=== PATIENT | female | born 1970 | race Caucasian/White ===

== ENCOUNTER 2017-01-28 16:45 | Emergency (ER) | payer OTHER ==
--- NOTE | 2017-01-28 18:30 | XRAY Preliminary Report ---
Exam: XR Shoulder 3 View RT IMPRESSION: No evidence of fracture or dislocation. [facility] SITE ID: [id number]
--- NOTE | 2017-01-28 18:32 | XRAY Report ---
EXAM: RIGHT SHOULDER RADIOGRAPHY EXAM DATE: 01/28/2017 06:09 PM. CLINICAL HISTORY: Trauma, pain. COMPARISON: None. TECHNIQUE: 3 views. FINDINGS: Bones: No fracture or focal bony lesion. Joints: No evidence of dislocation. Soft Tissues: No unexpected soft tissue findings. IMPRESSION: No evidence of fracture or dislocation. [facility] Referring Provider Line: [phone] SITE ID: [id number]
--- NOTE | 2017-01-28 19:10 | ED Physician Documentation ---
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 Pain right away, that has persisted.) Where injury occurred: Work Timing - onset: Today Timing - details: Abrupt onset, Still present Worsened by: Moving (abduction mostly but some with rotational movements.) Associated symptoms: No: Weakness, Numbness, Tingling, Swelling Similar symptoms before: Has not had sx before Recently seen: Not recently seen Review of Systems Constitutional: denies: Fever, Chills Skin: denies: Rash, Lesions Neurologic: denies: Focal weakness, Numbness PD PAST MEDICAL HISTORY - Past Medical History Past Medical History: Yes Cardiovascular: None Respiratory: None Neuro: None GI: GERD 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 : None HEENT: None Psych: Anxiety Musculoskeletal: None Derm: None - Past Surgical History Past Surgical History: Yes /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 - Present Medications Home Medications: Ambulatory Orders Medication Instructions Recorded Confirmed Omeprazole Magnesium [Prilosec Otc] 15 mg PO DAILY 01/13/15 01/28/17 Sertraline [Zoloft] 50 mg PO DAILY 02/15/15 01/28/17 HYDROcod/ACETAM 5/325 [[place] 5/325] 1 tab PO Q6H PRN #15 tablet 01/28/17 Naproxen 375 mg PO BID #20 tablet 01/28/17 - Allergies Allergies/Adverse Reactions: Allergies Allergy/AdvReac Type Severity Reaction Status Date / Time No Known Drug Allergies Allergy Verified 01/28/17 16:58 - Social History Does the pt smoke?: No Smoking Status: Never smoker Does the pt drink ETOH?: Yes Does the pt have substance abuse?: No - Immunizations Immunizations are current?: Yes - POLST Patient has POLST: No PD ED PE NORMAL - Vitals Vital signs reviewed: Yes - General General: Alert and oriented X 3, Well developed/nourished - HEENT HEENT: Atraumatic - Neck Neck: Supple, no meningeal sign, No bony TTP, No adenopathy - Cardiac Cardiac: RRR, No murmur - Respiratory Respiratory: Clear bilaterally - Derm Derm: Normal color, Warm and dry - Extremities Extremities: Other (right shoulder tender lateral and anterior. ROM limited for pain, but mostly with abduction. Some pain with rotational movements. No noted laxity nor effusion. ) Results - Vitals Vitals: Oxygen O2 Source Room air - Rads (name of study) shoulder Radiology: Prelim report reviewed, EMP read contemporaneously (normal bony structures and alignment. ) Departure - Departure Disposition: 01 Home, Self Care Clinical Impression: Strain of right shoulder Qualifiers: Encounter type: initial encounter Qualified Code(s): S46.911A - Strain of unspecified muscle, fascia and tendon at shoulder and upper arm level, right arm , initial encounter Condition: Stable Record reviewed to determine appropriate education?: Yes Instructions: ED Sprain Shoulder Follow-Up: Mikayla Chapman MD [Primary Care Provider] - [facility] [Provider Group] Prescriptions: HYDROcod/ACETAM 5/325 [[place] 5/325] 1 tab PO Q6H PRN #15 tablet PRN Reason: Pain Naproxen 375 mg PO BID #20 tablet Comments: You can use a sling for the shoulder for comfort but be sure to have gentle range of motion of the shoulder several times a day so does not get stiff and. Use naproxen or ibuprofen twice daily for the next 7-10 days. Be sure to take it with food. Add Tylenol or hydrocodone if needed for pain. Follow-up with orthopedics on the as planned and potentially call them tomorrow to see if they have even a sooner appointment. Light use of the right shoulder for the next 7-10 days as needed. Seems likely to be a strain of the muscles, though he would consider some injury or even partial tear of the rotator cuff since it is hurting so much. Following up with orthopedics will be good. Forms: Activity restrictions Discharge Date/Time: 01/28/17 19:47
[2017-01-28 19:48] VITALS: BP 136/90
== END 2017-01-28 19:47 | disposition home or self-care (01) ==
LOC: ED 16:45
DX: S46.911A Strain of unspecified muscle, fascia and tendon at shoulder and upper arm level, right arm, initial encounter (principal); X50.9XXA Other and unspecified overexertion or strenuous movements or postures, initial encounter; Y93.89 Activity, other specified; Y92.219 Unspecified school as the place of occurrence of the external cause; Y99.0 Civilian activity done for income or pay
CPT/HCPCS: 1040M; 73030; 99283

== ENCOUNTER 2017-05-08 16:31 | Outpatient (CLI) | payer OTHER ==
--- NOTE | 2017-05-09 12:52 | MRI Report ---
MRI CERVICAL SPINE WITHOUT CONTRAST INDICATION: 47-year-old female with complaints of right shoulder pain and tingling in right arm. Conc rey for cervical radiculopathy. TECHNIQUE: 1. Sagittal STIR, T1 and T2. 2. Axial T1, T2 and T2*. COMPARISON: None FINDINGS: There is some straightening of the cervical alignment with very minimal lordosis. This may be positio nal. Also demonstrated is minimal retrolisthesis of C3 on C4 and C5 on C6. Alignment is otherwise unr emarkable. Degenerative changes are demonstrated in the disks at all levels. There is mild disk space narrowing at C4-C5 with mild to moderate narrowing at C5-C6. The disk space heights are otherwise preserved. The marrow signal intensity appears normal. Axial images: C2-C3: No disk herniation or spinal stenosis. The neural foramina appear widely patent. C3-C4: Tiny posterior central protrusion with minimal mass effect on the ventral aspect of the thecal sac. The CSF ventral to the cord is effaced. There is a small amount of CSF dorsal to the cord witho ut high-grade spinal stenosis. No flattening or deformity of the cord to suggest impingement. The oh ral foramina are widely patent. C4-C5: Tiny posterior central protrusion with mild mass effect on the ventral aspect of the thecal sa c. The CSF ventral to the cord is effaced. There is a small amount of CSF dorsal to the cord without high-grade spinal stenosis. No flattening or deformity of the cord to suggest impingement. The neural foramina appear widely patent. C5-C6: Posterior spondylotic bar, larger paracentrally to the left where it projects posteriorly into the spinal canal for up to about 4.4 mm. Associated mass effect on the ventral aspect of the thecal sac. Thickening of ligamenta flava causing mass effect on the dorsal aspect of the dural sac. There i s significant spinal stenosis at this level. The mid sagittal canal diameter is on the order of about 6.5 mm. There is more severe stenosis, paracentrally to the left. The CSF surrounding the cord is co mpletely effaced and there appears to be some deformity of the cord with slight flattening of the cynthia tral surface, most pronounced paracentrally to the left. The spinal cord has not been assessed to adv antage. There may be mild T2 hyperintensity in the cord at the C5-C6 disk level (see image 6 of manju s 301). This is not confirmed as a definite, real finding on the axial T2 or sagittal STIR sequences and this may represent artifact. Large left-sided uncovertebral osteophyte appears to be giving rise to moderate to severe left foraminal stenosis. Smaller right-sided uncovertebral osteophyte with mild right foraminal stenosis. C6-C7: No disk herniation or spinal stenosis. The neural foramina are widely patent. C7-T1: No disk herniation or spinal stenosis. The neural foramina appear widely dated. IMPRESSION: 1. Multilevel degenerative disk disease. Small disk herniations or spondylotic bars are seen at sever al levels as described. There is associated spinal canal narrowing, most prominent at C5-C6 on the le ft where there appears to be at least mild cord impingement. Equivocal finding suggesting there may b e a tiny focus of T2 hyperintensity in the cord at this level. If real, this could represent minor ed bryce or myelomalacia. This probably represents artifact. 2. There is a fairly large, left-sided uncovertebral osteophyte at C5-C6 giving rise to left C5-C6 fo raminal stenosis that is considered moderate to severe. There certainly could be compromise of exitin g left C6 nerve root. Recommend clinical correlation for possible left C6 radiculopathy. 3. No significant appearing right-sided foraminal stenosis is identified and there is no evidence of right-sided cervical nerve root impingement. Referring Provider Line: [phone] SITE ID: [id number]
== END 2017-05-08 16:32 | disposition home or self-care (01) ==
LOC: DI 16:31
PROVIDERS: ATTEND Orthopaedic Surgery
DX: M50.21 Other cervical disc displacement, high cervical region (principal); M50.31 Other cervical disc degeneration, high cervical region; M47.892 Other spondylosis, cervical region
CPT/HCPCS: 72141

== ENCOUNTER 2017-08-21 13:41 | Outpatient (CLI) | payer OTHER ==
[2017-08-21 14:06] LABS: BASOPHILS % (AUTO) 0.3 %; EOSINOPHILS # (AUTO) 0.1 10^3/uL (0.0-0.7); EOSINOPHILS % (AUTO) 1.4 %; LYMPHOCYTES % (AUTO) 23.9 %; MEAN CORPUSCULAR HEMOGLOBIN 28.9 pg (27.0-31.0); MEAN CORPUSCULAR HGB CONC 34.2 g/dL (32.0-36.0); MEAN CORPUSCULAR VOLUME 84.4 fL (81.0-99.0); MEAN PLATELET VOLUME 6.9 fL (7.9-10.8); MONOCYTES # (AUTO) 0.5 10^3/uL (0.0-1.0); MONOCYTES % (AUTO) 5.4 %; NEUTROPHILS # (AUTO) 5.8 10^3/uL (1.5-6.6); PLT - PLATELET COUNT 329 10^3/uL (130-450); RED BLOOD COUNT 4.85 10^6/uL (4.20-5.40); RED CELL DISTRIBUTION WIDTH 12.8 % (12.0-15.0); WHITE BLOOD COUNT 8.4 x10^3/uL (4.8-10.8)
== END 2017-08-21 13:42 | disposition home or self-care (01) ==
LOC: LAB 13:41
PROVIDERS: ATTEND Orthopaedic Surgery
DX: Z01.812 Encounter for preprocedural laboratory examination (principal)
CPT/HCPCS: 36415; 85025

== ENCOUNTER 2020-06-08 12:40 | Outpatient (CLI) | payer OTHER | END 2020-06-08 23:59 | disposition home or self-care (01) | LOC: COV 12:40 | PROVIDERS: ATTEND Family Medicine | DX: Z20.822 Contact with and (suspected) exposure to COVID-19 (principal) ==

== ENCOUNTER 2023-01-17 08:53 | Outpatient (CLI) | payer BC ==
[2023-01-17 09:10] LABS: BASOPHILS % (AUTO) 0.4 %; EOSINOPHILS # (AUTO) 0.1 10^3/uL (0.0-0.7); EOSINOPHILS % (AUTO) 0.7 %; HCT - HEMATOCRIT 23.6 % (37.0-47.0); LYMPHOCYTES # (AUTO) 1.3 10^3/uL (1.5-3.5); LYMPHOCYTES % (AUTO) 17.2 %; MEAN CORPUSCULAR HEMOGLOBIN 16.4 pg (27.0-31.0); MEAN CORPUSCULAR HGB CONC 24.6 g/dL (32.0-36.0); MEAN CORPUSCULAR VOLUME 66.9 fL (81.0-99.0); MEAN PLATELET VOLUME 9.2 fL (7.9-10.8); MONOCYTES # (AUTO) 0.3 10^3/uL (0.0-1.0); MONOCYTES % (AUTO) 3.8 %; NEUTROPHILS % (AUTO) 77.6 %; NRBC ABSOLUTE COUNT (AUTO) 0.02 x10^3/uL; NUCLEATED RED BLOOD CELLS AUTO 0.3 /100WBC; PLT - PLATELET COUNT 356 10^3/uL (130-450); RED BLOOD COUNT 3.53 10^6/uL (4.20-5.40); RED CELL DISTRIBUTION WIDTH 20.3 % (12.0-15.0); WHITE BLOOD COUNT 7.7 x10^3/uL (4.8-10.8)
[2023-01-17 09:32] LABS: HGB - HEMOGLOBIN 5.8 g/dL (12.0-16.0)
[2023-01-17 09:52] LABS: THYROID STIMULATING HORMONE 2.02 uIU/mL (0.34-5.60)
[2023-01-17 09:54] LABS: ALBUMIN 3.4 g/dL (3.2-5.5); ALBUMIN/GLOBULIN RATIO 1.3 (1.0-2.2); BILIRUBIN,TOTAL 0.7 mg/dL (0.2-1.0); CALCIUM 8.7 mg/dL (8.5-10.3); CREATININE 0.5 mg/dL (0.6-1.3); POTASSIUM 3.6 mmol/L (3.5-4.5); TOTAL PROTEIN 6.1 g/dL (6.4-8.9)
[2023-01-17 10:43] LABS: ABSOLUTE RETICS # AUTO 0.052 10^6/uL (0.020-0.110); RED BLOOD COUNT 3.53 10^6/uL (4.20-5.40); RETICULOCYTE COUNT % (AUTO) 1.47 % (0.5-2.3)
[2023-01-17 11:12] LABS: FERRITIN 1.3 ng/mL (11.0-306.8)
== END 2023-01-17 08:54 | disposition home or self-care (01) ==
LOC: LAB 08:53
PROVIDERS: ATTEND Internal Medicine
DX: R06.00 Dyspnea, unspecified (principal); R42 Dizziness and giddiness; R20.0 Anesthesia of skin; G25.81 Restless legs syndrome; R00.0 Tachycardia, unspecified; Z79.899 Other long term (current) drug therapy; I51.4 Myocarditis, unspecified; D64.9 Anemia, unspecified
CPT/HCPCS: 36415; 80053; 82607; 82728; 82746; 83540; 83880; 84443; 84466; 85025; 85045; 85379

== ENCOUNTER 2023-02-20 07:22 | Day surgery (SDC) | payer BC ==
[2023-02-20] MEDS ORDERED: LACTATED RINGERS 1,000 ML IV ONE ×2 (07:30→09:37)
--- NOTE | 2023-02-20 08:21 | ANESTHESIA ---
Pre-Anesthesia VS, & Labs - Diagnosis anemia+ screening - Procedure EGD + colonoscopy Vital Signs: Temp Pulse Resp BP Pulse Ox O2 Flow Rate 36.4 C L 92 22 151/76 H 96 02/20/23 07:30 02/20/23 07:30 02/20/23 07:30 02/20/23 07:30 02/20/23 07:30 Height: 5 ft 5 in Weight (kg): 85.2 kg Body Mass Index: 31.2 BMI Classification: Obese - NPO >8 hours - Is Patient ?: No - Lab Results Lab results reviewed: Yes Home Medications and Allergies Home Medications: Ambulatory Orders Iron,Carbonyl/Ascorbic Acid [Fe C Tablet] 1 each PO DAILY 02/19/23 Omeprazole Magnesium [Prilosec Otc] 15 mg PO DAILY 01/13/15 Sertraline [Zoloft] 50 mg PO DAILY 02/15/15 Iron,Carbonyl/Ascorbic Acid [Fe C Tablet] 1 each PO DAILY 02/19/23 Allergies/Adverse Reactions: Allergies Allergy/AdvReac Type Severity Reaction Status Date / Time Sulfa (Sulfonamide Allergy Emesis Verified 02/20/23 07:49 Antibiotics) Anes History & Medical History - Anesthetic History Anesthesia Complications: reports: No previous complications Family history of Anesthesia Complications: Denies Family history of Malignant Hyperthermia: Denies - Medical History Cardiovascular: reports: None Pulmonary: reports: None Gastrointestinal: reports: GERD (w/c) Urinary: reports: None Neuro: reports: None Musculoskeletal: reports: None Endocrine/Autoimmune: reports: None Blood Disorders: reports: None Skin: reports: None Smoking Status: Never smoker Psychosocial: reports: No issues indicated - Surgical History Gynecologic: reports: section, Hysterectomy Exam General: Alert, Oriented x3, Cooperative Dental: WNL Mouth Openin Fingerbreadth Neck Mobility: Normal Mallampati classification: II Thyromental Distance: 4-6 cm Respiratory: Lungs clear Cardiovascular: Regular rate Plan Anesthesia Type: General, MAC Regional Block: Per Surgeon's request for Post Op pain control Consent for Procedure(s) Verified and Reviewed: Yes Code Status: Attempt Resuscitation ASA classification: 2-Mild systemic disease Is this case an emergency?: No
[2023-02-20] MEDS ORDERED: PROPOFOL 500 MG/50 ML 500 MG/50 ML VIAL ONE ×2 (08:32→09:06)
[2023-02-20] MEDS ORDERED: LIDOCAINE-PF 2% 10 ML AMP SUBQ ONE (08:32)
[2023-02-20] MEDS ORDERED: MIDAZOLAM 2 MG/2 ML VIAL ONE (08:40)
[2023-02-20 10:39] VITALS: O2SAT 94
--- NOTE | 2023-02-20 10:52 | XRAY Report ---
PROCEDURE: Chest 1 View X-Ray INDICATIONS: JOSE/LLL decreased breath sounds TECHNIQUE: One view of the chest was acquired. COMPARISON: None. FINDINGS: Surgical changes and devices: None. Lungs and pleura: No pleural effusions or pneumothorax. Ill-defined airspace opacities are seen in l eft infrahilar region and left lower lung field. Blunting of left costophrenic angle is also noted carter ggestive of trace left pleural effusion. Mediastinum: There is cardiomegaly, and suggestion of large hiatal hernia. Bones and chest wall: No suspicious bony lesions. Overlying soft tissues appear unremarkable. IMPRESSION: 1. Suggestion of moderate size left lower lobe infiltrate/atelectasis. Trace left pleural effusion is also likely present. No pneumothorax. 2. Cardiomegaly and suggestion of large hiatal hernia. Reviewed by: Maikel Marie MD on 02/20/2023 10:51 AM PDT Approved by: Maikel Marie MD on 02/20/2023 10:51 AM PDT Station ID: [id number]
[2023-02-20 10:59] VITALS: BP 104/55
--- NOTE | 2023-02-20 11:17 | CONSULTATION NOTE ---
Consultation Report: [id number] requested to see pt in post-op by RN due to pt feeling her breathing is "tight". Listened to BBS, R side CTA throughout, however decreased BS noted on L side LLL<JOSE. VSS, O2 sat 96% on RA. Port CXR ordered. 1052 CXR results noted and conveyed to pt and , see report. Will notify Dr Luna. 1104 Dr Luna recommends following up with PCP regarding CXR results and return to ED if symptoms worsen. Pt states understanding and reports she "feels fine". VSS. Pt not in any distress. Pt provided with IS and RN will go over teaching with patient prior to discharge.
--- NOTE | 2023-02-20 19:17 | ANESTHESIA POST OP EVALUATION ---
Anesthesia Post Eval - Post Anesthesia Eval Vitals: Last Vital Signs Temp 36.0 C L 02/20/23 10:50 Pulse 82 02/20/23 10:50 Resp 14 02/20/23 10:50 BP 104/55 L 02/20/23 10:50 Pulse Ox 94 02/20/23 10:50 O2 Flow Rate CV Function Including HR & BP: Stable Pain Control: Satisfactory Nausea & Vomiting: Negative Mental Status: Baseline Respiratory Status: Airway Patent Hydration Status: Satisfactory Anesthesia Complications: None
== END 2023-02-20 07:23 | disposition home or self-care (01) ==
LOC: SDS 07:22
PROVIDERS: ATTEND Surgery
PROC: 0DB78ZX Excision of Stomach, Pylorus, Via Natural or Artificial Opening Endoscopic, Diagnostic (ICD-10-PCS; 2023-02-20)
PROC: 0DJD8ZZ Inspection of Lower Intestinal Tract, Via Natural or Artificial Opening Endoscopic (ICD-10-PCS; principal; 2023-02-20 08:30)
PROC: 0DB68ZX Excision of Stomach, Via Natural or Artificial Opening Endoscopic, Diagnostic (ICD-10-PCS; 2023-02-20 08:30)
DX: Z12.11 Encounter for screening for malignant neoplasm of colon (principal); D50.9 Iron deficiency anemia, unspecified; K25.9 Gastric ulcer, unspecified as acute or chronic, without hemorrhage or perforation; E66.9 Obesity, unspecified; Z68.31 Body mass index [BMI] 31.0-31.9, adult; K21.9 Gastro-esophageal reflux disease without esophagitis; R06.89 Other abnormalities of breathing; K44.9 Diaphragmatic hernia without obstruction or gangrene; K29.50 Unspecified chronic gastritis without bleeding; I51.7 Cardiomegaly
CPT/HCPCS: 43239; 45378; 71045; J7120

== ENCOUNTER 2023-02-21 18:21 | Emergency (ER) | payer BC ==
[2023-02-21 18:33] VITALS: BP 146/75; O2SAT 97
--- NOTE | 2023-02-21 18:48 | XRAY Report ---
PROCEDURE: Chest 1 View X-Ray INDICATIONS: Chest Pain TECHNIQUE: One view of the chest was acquired. COMPARISON: 02/20/2023. FINDINGS: Surgical changes and devices: None. Lungs and pleura: No pleural effusions or pneumothorax. Lungs are clear. Mediastinum: Mediastinal contours appear normal. Heart size is normal. Bones and chest wall: No suspicious bony lesions. Moderate to large hiatal hernia is seen. Overlyin g soft tissues appear unremarkable. IMPRESSION: No acute cardiopulmonary process. Moderate to large hiatal hernia. Reviewed by: Maikel Marie MD on 02/21/2023 6:47 PM PDT Approved by: Maikel Marie MD on 02/21/2023 6:47 PM PDT Station ID: [id number]
[2023-02-21 18:53] LABS: BASOPHILS % (AUTO) 0.3 %; EOSINOPHILS # (AUTO) 0.1 10^3/uL (0.0-0.7); EOSINOPHILS % (AUTO) 1.1 %; HCT - HEMATOCRIT 32.9 % (37.0-47.0); HGB - HEMOGLOBIN 8.9 g/dL (12.0-16.0); LYMPHOCYTES # (AUTO) 1.5 10^3/uL (1.5-3.5); LYMPHOCYTES % (AUTO) 11.2 %; MEAN CORPUSCULAR HEMOGLOBIN 20.6 pg (27.0-31.0); MEAN CORPUSCULAR HGB CONC 27.1 g/dL (32.0-36.0); MEAN CORPUSCULAR VOLUME 76.3 fL (81.0-99.0); MONOCYTES # (AUTO) 0.4 10^3/uL (0.0-1.0); MONOCYTES % (AUTO) 3.2 %; NEUTROPHILS # (AUTO) 11.1 10^3/uL (1.5-6.6); NEUTROPHILS % (AUTO) 83.8 %; PLT - PLATELET COUNT 380 10^3/uL (130-450); RED BLOOD COUNT 4.31 10^6/uL (4.20-5.40); RED CELL DISTRIBUTION WIDTH 21.7 % (12.0-15.0); WHITE BLOOD COUNT 13.2 x10^3/uL (4.8-10.8)
[2023-02-21 19:08] LABS: ALBUMIN 3.8 g/dL (3.2-5.5); ALBUMIN/GLOBULIN RATIO 1.3 (1.0-2.2); ALKALINE PHOSPHATASE 68 IU/L (42-121); ALT ALANINE AMINOTRANSFERASE 10 IU/L (10-60); AST ASPARTATE AMINOTRANSFERASE 8 IU/L (10-42); BILIRUBIN,TOTAL 0.7 mg/dL (0.2-1.0); BUN - BLOOD UREA NITROGEN 13 mg/dL (6-20); CARBON DIOXIDE - CO2 28 mmol/L (21-32); CHLORIDE 107 mmol/L (101-111); CREATININE 0.6 mg/dL (0.6-1.3); GFR - MDRD 104 (>89); GLUCOSE 107 mg/dL (74-104); POTASSIUM 3.2 mmol/L (3.5-4.5); SODIUM 140 mmol/L (135-145); TOTAL PROTEIN 6.8 g/dL (6.4-8.9)
[2023-02-21 19:10] LABS: LIPASE < 10 U/L (11-82); PLATELET ESTIMATE, MANUAL NORMAL (130-450,000) (NORMAL); PLATELET MORPHOLOGY NORMAL APPEARANCE (NORMAL); SLIDE REVIEW? Indicated
--- NOTE | 2023-02-21 20:02 | ED Physician Documentation ---
History of Present Illness - Stated complaint Stated Complaint: CHEST PX/UPPER BACK PX/SOA/COUGH - Chief complaint Chief Complaint: General - History obtained from History obtained from: Patient - Additonal information Additional information: 53-year-old female presents from home by private vehicle for central chest pain and nonproductive cough. Patient underwent EGD and colonoscopy yesterday to ev aluate for possible sources of patient's anemia. She states that yesterday she had a hard time with the anesthesia and was sent home with an incentive spirometer. Patient states that she had a chest x-ray yesterday that revealed a large hiatal hernia. Today she noticed pain and nonproductive cough and so her surgeon sent her to the ER for evaluation. Patient states that yesterday her incentive spirometer volumes were 500cc, today she is able to pull 1500cc Review of Systems Constitutional: denies: Fever, Chills Cardiac: reports: Chest pain / pressure. denies: Palpitations, Calf pain Respiratory: reports: Cough. 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 - Present Medications Home Medications: Ambulatory Orders Medication Instructions Recorded Confirmed Sertraline [Zoloft] 50 mg PO DAILY 02/15/15 02/21/23 - Allergies Allergies/Adverse Reactions: Allergies Allergy/AdvReac Type Severity Reaction Status Date / Time Sulfa (Sulfonamide Allergy Emesis Verified 02/20/23 07:49 Antibiotics) - Social History Does the pt smoke?: No Smoking Status: Never smoker Does the pt drink ETOH?: Yes Does the pt have substance abuse?: No - Immunizations Immunizations are current?: Yes - POLST Patient has POLST: No PD ED PE NORMAL - Vitals Vital signs reviewed: Yes - General General: Alert and oriented X 3, No acute distress, Well developed/nourished - HEENT HEENT: Atraumatic - Neck Neck: Supple, no meningeal sign - Cardiac Cardiac: RRR, No murmur, Strong equal pulses - Respiratory Respiratory: No respiratory distress, Clear bilaterally - Abdomen Abdomen: Soft, Non tender, Non distended - Derm Derm: Normal color, Warm and dry, No rash - Extremities Extremities: No deformity, No tenderness to palpate, Normal ROM s pain, No edema - Neuro Neuro: Alert and oriented X 3, bill sorter 2-12 intact, No motor deficit, Normal speech - Psych Psych: Normal mood, Normal affect Results - Vitals Vitals: Vital Signs - 24 hr 02/21/23 18:29 Temperature 36.7 C Heart Rate 100 Respiratory 20 Rate Blood Pressure 146/75 H O2 Saturation 97 Oxygen O2 Source Room air - EKG (time done) 1859 EKG releavant findings:: EKG personally interpreted by author of this note. Relevant findings are: Rate: Rate (enter#) (88) Rhythm: NSR [place]: Normal Intervals: Normal IA QRS: Normal Ischemia: Normal ST segments Computer interpretation: Agree with computer - Labs Labs: Laboratory Tests 02/21/23 02/21/23 18:45 18:45 WBC 13.2 H RBC 4.31 Hgb 8.9 L Hct 32.9 L MCV 76.3 L MCH 20.6 L MCHC 27.1 L RDW 21.7 H Plt Count 380 MPV 9.0 Neut # (Auto) 11.1 H Lymph # (Auto) 1.5 [place] # (Auto) 0.4 Eos # (Auto) 0.1 Baso # (Auto) 0.0 Absolute Nucleated RBC 0.00 Nucleated RBC % 0.0 Manual Slide Review Indicated Platelet Estimate NORMAL (130-450,000) Platelet Morphology NORMAL APPEARANCE RBC Morph Micro Appear 1+ MICROCYTOSIS Sodium 140 Potassium 3.2 L Chloride 107 Carbon Dioxide 28 Anion Gap 5.0 L BUN 13 Creatinine 0.6 Estimated GFR (MDRD) 104 Glucose 107 H Calcium 9.0 Total Bilirubin 0.7 AST 8 L ALT 10 Alkaline Phosphatase 68 Total Protein 6.8 Albumin 3.8 Globulin 3.0 Albumin/Globulin Ratio 1.3 Lipase < 10 L PD Medical Decision Making - ED course Complexity details: reviewed old records, reviewed results, re-evaluated patient, considered differential, d/w patient, d/w family ED course: This is a well-appearing patient with cough and centralized upper chest pain 1 day after EGD. Vital signs unremarkable, speaking in complete sentences without difficulty. Laboratory work is reviewed, hemoglobin 8.9, improved from five 1 month ago. Chest x-ray today shows resolution of previously seen atelectasis/pleural effusion yesterday. Question if patient's cough is due to reexpansion of the lung on the left-hand side. EKG is sinus rhythm without concerning findings. Patient and at bedside counseled of all lab and imaging findings. They are relieved to know that the chest x-ray is improved and the previous seen left-sided findings are now gone. Patient was encouraged to continue to use her incentive spirometer and to follow-up with general surgery as previously scheduled. Strict ED return precautions discussed at bedside. Departure - Departure Disposition: Home, Self Care Clinical Impression: Cough Qualifiers: Cough type: acute Qualified Code(s): R05.1 - Acute cough Condition: Stable Instructions: Deep Coughing Comments: Your chest x-ray today shows significant improvement compared to yesterday's chest x-ray. Yesterday you had lung compression called "atelectasis", today it is completely resolved. Continue to use your incentive spirometer and follow-up with Dr. Luna as scheduled.Your hemoglobin today was 8.9. It is improving from your last hospital stay. Please return for any new or worsening concerns. Forms: PCP List Discharge Date/Time: 02/21/23 20:28
== END 2023-02-21 20:28 | disposition home or self-care (01) ==
LOC: ED 18:21
DX: R05.1 Acute cough (principal); D64.9 Anemia, unspecified
CPT/HCPCS: 36415; 80053; 83690; 85025; 93005; 99283; 99284

== ENCOUNTER 2023-02-24 16:55 | Outpatient (CLI) | payer BC ==
[2023-02-24 18:12] LABS: FERRITIN 5.1 ng/mL (11.0-306.8)
== END 2023-02-24 16:56 | disposition home or self-care (01) ==
LOC: LAB 16:55
PROVIDERS: ATTEND Internal Medicine
DX: D64.9 Anemia, unspecified (principal)
CPT/HCPCS: 36415; 82728; 83540; 84425; 84466

== ENCOUNTER 2023-07-11 10:47 | Outpatient (CLI) | payer BC ==
[2023-07-11 11:30] LABS: THYROID STIMULATING HORMONE 1.63 uIU/mL (0.34-5.60)
== END 2023-07-11 10:48 | disposition home or self-care (01) ==
LOC: LAB 10:47
PROVIDERS: ATTEND Internal Medicine
DX: R53.83 Other fatigue (principal)
CPT/HCPCS: 36415; 82607; 84439; 84443; 84481

== ENCOUNTER 2023-08-29 14:43 | Outpatient (CLI) | payer BC ==
--- NOTE | 2023-08-29 15:18 | XRAY Report ---
PROCEDURE: Shoulder 2+V RT INDICATIONS: PAININ RIGHT SHOULDER TECHNIQUE: 2 views of the shoulder were acquired. COMPARISON: None. FINDINGS: Bones: No fractures or dislocations. No suspicious bony lesions. Visualized ribs appear intact. Acromioclavicular joint space narrowing with osteophytosis. Soft tissues: No suspicious soft tissue calcifications. The visualized lungs are within normal limi ts. IMPRESSION: No acute bony abnormality. Moderate acromioclavicular osteoarthritis. Reviewed by: Eric Neville MD on 08/29/2023 3:17 PM PDT Approved by: Eric Neville MD on 08/29/2023 3:17 PM PDT Station ID: [id number]
== END 2023-08-29 14:44 | disposition home or self-care (01) ==
LOC: DI 14:43
PROVIDERS: ATTEND Nurse Practitioner
DX: M19.011 Primary osteoarthritis, right shoulder (principal)

== ENCOUNTER 2023-09-22 15:35 | Outpatient (CLI) | payer BC ==
[2023-09-22 16:14] LABS: THYROID STIMULATING HORMONE 2.8 uIU/mL (0.34-5.60)
== END 2023-09-22 15:36 | disposition home or self-care (01) ==
LOC: LAB 15:35
PROVIDERS: ATTEND Internal Medicine
DX: R53.83 Other fatigue (principal)
CPT/HCPCS: 36415; 82607; 84439; 84443; 84481